=== PATIENT | male | born 1955 | race Caucasian/White ===

== ENCOUNTER → 2019-03-11 | Outpatient (CLI) | payer BC ==
--- NOTE | 2019-03-11 09:49 | US ---
EXAMINATION TYPE: US duplex aorta DATE OF EXAM: 03/11/2019 COMPARISON: NONE CLINICAL HISTORY: I10 HTN,Z82.49 FAM HX AAA. EXAM MEASUREMENTS: Abdominal Aorta: Proximal: 2.4cm Mid: 2.0cm Distal: 1.7cm Bifurcation: Rt:1.2cm Lt: 1.0 cm No evidence of AAA. IMPRESSION: No sonographic evidence of abdominal aortic aneurysm in the visualized portions of the ab dominal aorta.
== END | disposition home or self-care (01) ==
LOC: RADUSWWP 07:07
PROVIDERS: ATTEND Family Medicine
DX: I10 Essential (primary) hypertension (principal); Z82.49 Family history of ischemic heart disease and other diseases of the circulatory system
CPT/HCPCS: 93979

== ENCOUNTER 2021-03-02 12:58 | Emergency (ER) | payer MEDICARE, BC ==
[2021-03-02 13:43] VITALS: TEMP 98.7
[2021-03-02 13:56] LABS: Appearance,Urine Clear (Clear); Bilirubin,Urine Negative (Negative); Blood,Urine Negative (Negative); Color,Urine Yellow; Glucose,Urine (UA) Negative (Negative); Ketones,Urine Negative (Negative); Leukocyte Esterase,Urine Negative (Negative); Nitrite,Urine Negative (Negative); Protein,Urine Negative (Negative); Specific Gravity,Urine 1.011 (1.001-1.035); Urobilinogen,Urine <2.0 mg/dL (<2.0)
[2021-03-02 14:10] LABS: Basophils # (A) 0.1 k/uL (0-0.2); Basophils % (A) 1 %; Eosinophils # (A) 0.2 k/uL (0-0.7); Eosinophils % (A) 3 %; HCT 43.5 % (39.0-53.0); HGB 14.8 gm/dL (13.0-17.5); Lymphocytes # (A) 1.6 k/uL (1.0-4.8); Lymphocytes % (A) 24 %; MCH 32.5 pg (25.0-35.0); MCHC 33.9 g/dL (31.0-37.0); MCV 95.7 fL (80.0-100.0); Mean Platelet Volume 7.8; Monocytes # (A) 0.5 k/uL (0-1.0); Monocytes % (A) 7 %; Neutrophils # (A) 4.3 k/uL (1.3-7.7); Neutrophils % (A) 63 %; Platelet Count 276 k/uL (150-450); RBC 4.55 m/uL (4.30-5.90); RDW 13.7 % (11.5-15.5); WBC 6.9 k/uL (3.8-10.6)
[2021-03-02 14:36] LABS: Albumin 4.3 g/dL (3.5-5.0); Calcium 9.3 mg/dL (8.4-10.2); Potassium 4.3 mmol/L (3.5-5.1); Total Bilirubin 0.7 mg/dL (0.2-1.3); Total Protein 7.3 g/dL (6.3-8.2)
--- NOTE | 2021-03-02 17:07 | ED ---
General Adult HPI - General Chief complaint: Abdominal Pain Stated complaint: lt sided abd pain Time Seen by Provider: 03/02/21 16:57 Source: patient Mode of arrival: ambulatory Limitations: no limitations - History of Present Illness Initial comments: Dictation was produced using [employer] dictation software. please excuse any grammatical, word or spelling errors. Chief Complaint: Patient is a 65-year-old male past medical history of kidney stones hypertension and gout presents to the emergency department for left lower quadrant abdominal pain History of Present Illness: Patient is a 65-year-old male he has no significant comorbidities. This emergency department for 1-2 days of left groin pain, left flank pain and testicular pain. Patient states that he was out doing his usual activities of daily living. He denies any trauma to his testicle or abdominal area. Denies any nausea vomiting. Having normal bowel movements. No constitutional symptoms. He has history of kidney stones. He states this symptoms are similar though not as severe. He localizes the pain to his left lower quadrant. States that feels slightly improved with certain movements. Worse with palpation. Pain radiates to the left testicle The ROS documented in this emergency department record has been reviewed and confirmed by me. Those systems with pertinent positive or negative responses have been documented in the HPI. All other systems are other negative and/or noncontributory. PHYSICAL EXAM: General Impression: Alert and oriented x3, not in acute distress HEENT: Normocephalic atraumatic, extra-ocular movements intact, pupils equal and reactive to light bilaterally, mucous membranes moist. Cardiovascular: Heart regular rate and rhythm Chest: Able to complete full sentences, no retractions, no tachypnea Abdomen: abdomen soft, tenderness to palpation to the left lower quadrant non- distended, no organomegaly Musculoskeletal: Pulses present and equal in all extremities, no peripheral edema Motor: no focal deficits noted Neurological: CN II-XII grossly intact, no focal motor or sensory deficits noted Skin: Intact with no visualized rashes Psych: Normal affect and mood exam: Normal testicles, no palpable mass with Valsalva ED course: 65-year-old male presents to emergency Department with 2 days of radiating left groin pain. Vital signs upon arrival are within acceptable limits. Physical examination is benign. Patient underwent advanced triage protocol labs ordered by triage nurse. CBC is unremarkable. Metabolic panel is negative. No acute kidney injury. No leukocytosis. Urinalysis negative for blood or signs of infection. Computed tomography scan abdomen and pelvis shows minimal fat stranding around the proximal sigmoid colon. Clinical presentation concerning for diverticulitis. Provided [facility] prescription for oral antibiotics. Return precautions discussed. - Related Data Home Medications Medication Instructions Recorded Confirmed Allopurinol [Zyloprim] 300 mg PO DAILY 03/02/21 03/02/21 Lisinopril-Hctz 10-12.5 mg 1 tab PO DAILY 03/02/21 03/02/21 [Zestoretic 10-12.5] Psyllium Husk (with Sugar) 5 ml PO DAILY PRN 03/02/21 03/02/21 [Metamucil Powder] Previous Rx's Medication Instructions Recorded Amoxic-Pot Clav 875-125Mg 1 tab PO BID 10 Days #20 tab 03/02/21 [Augmentin 875-125] Allergies Allergy/AdvReac Type Severity Reaction Status Date / Time No Known Allergies Allergy Verified 03/02/21 17:23 Review of Systems ROS Statement: Those systems with pertinent positive or pertinent negative responses have been documented in the HPI. ROS Other: All systems not noted in ROS Statement are negative. Past Medical History Past Medical History: Hypertension Additional Past Medical History / Comment(s): gout History of Any Multi-Drug Resistant Organisms: None Reported Past Surgical History: Orthopedic Surgery Past Psychological History: No Psychological Hx Reported Smoking Status: Never smoker Past Alcohol Use History: Occasional Past Drug Use History: None Reported General Exam Limitations: no limitations Course Vital Signs 03/02/21 13:39 Temperature 98.7 F Pulse Rate 68 Respiratory 20 Rate Blood Pressure 122/53 O2 Sat by Pulse 96 Oximetry Medical Decision Making - Lab Data Result diagrams: 03/02/21 13:58 03/02/21 13:58 Lab Results 03/02/21 03/02/21 03/02/21 Range/Units 13:48 13:58 13:58 WBC 6.9 (3.8-10.6) k/uL RBC 4.55 (4.30-5.90) m/uL Hgb 14.8 (13.0-17.5) gm/dL Hct 43.5 (39.0-53.0) % MCV 95.7 (80.0-100.0) fL MCH 32.5 (25.0-35.0) pg MCHC 33.9 (31.0-37.0) g/dL RDW 13.7 (11.5-15.5) % Plt Count 276 (150-450) k/uL MPV 7.8 Neutrophils % 63 % Lymphocytes % 24 % Monocytes % 7 % Eosinophils % 3 % Basophils % 1 % Neutrophils # 4.3 (1.3-7.7) k/uL Lymphocytes # 1.6 (1.0-4.8) k/uL Monocytes # 0.5 (0-1.0) k/uL Eosinophils # 0.2 (0-0.7) k/uL Basophils # 0.1 (0-0.2) k/uL Sodium 137 (137-145) mmol/L Potassium 4.3 (3.5-5.1) mmol/L Chloride 99 (98-107) mmol/L Carbon Dioxide 29 (22-30) mmol/L Anion Gap 9 mmol/L BUN 18 (9-20) mg/dL Creatinine 1.03 (0.66-1.25) mg/dL Est GFR (CKD-EPI)AfAm 88 (>60 ml/min/1.73 sqM) Est GFR (CKD-EPI)NonAf 76 (>60 ml/min/1.73 sqM) Glucose 97 (74-99) mg/dL Calcium 9.3 (8.4-10.2) mg/dL Total Bilirubin 0.7 (0.2-1.3) mg/dL AST 24 (17-59) U/L ALT 24 (4-49) U/L Alkaline Phosphatase 105 (38-126) U/L Total Protein 7.3 (6.3-8.2) g/dL Albumin 4.3 (3.5-5.0) g/dL Amylase 50 (30-110) U/L Lipase 92 (23-300) U/L Urine Color Yellow Urine Appearance Clear (Clear) Urine pH 5.0 (5.0-8.0) Ur Specific [place] 1.011 (1.001-1.035) Urine Protein Negative (Negative) Urine Glucose (UA) Negative (Negative) Urine Ketones Negative (Negative) Urine Blood Negative (Negative) Urine Nitrite Negative (Negative) Urine Bilirubin Negative (Negative) Urine Urobilinogen <2.0 (<2.0) mg/dL Ur Leukocyte Esterase Negative (Negative) Disposition Clinical Impression: Diverticulitis Disposition: HOME SELF-CARE Condition: Fair Instructions (If sedation given, give patient instructions): Diverticulitis (ED) Prescriptions: Amoxic-Pot Clav 875-125Mg [Augmentin 875-125] 1 tab PO BID 10 Days #20 tab Is patient prescribed a controlled substance at d/c from ED?: No Referrals: Axel Gant MD [Primary Care Provider] - 1-2 days
--- NOTE | 2021-03-02 18:20 | CT ---
EXAMINATION TYPE: CT abdomen pelvis wo con DATE OF EXAM: 03/02/2021 COMPARISON: 09/02/2011 HISTORY: Left lower quadrant pain. CT DLP: 1074.4 mGycm Automated exposure control for dose reduction was used. Images obtained from the diaphragm to the floor the pelvis with no contrast. There is subsegmental atelectasis in the lingula left upper lobe. There is no pleural effusion. Heart size is normal. Liver and spleen are intact. Pancreas and gallbladder appear intact. The bile ducts are not dilated. Stomach appears normal. There is no adrenal mass. Kidneys have normal size and contour. There is no hydronephrosis. Ureters a re not dilated. There is no retroperitoneal adenopathy. Appendix is posterior and appears normal. There are numerous diverticula in the sigmoid colon. There is no diverticulitis. The bladder distends smoothly. There is left hip prosthesis. There is prostatic calcification. There is some minimal fat stranding anterior to the proximal sigmoid colon close to the abdominal wall. There is left hip prosthesis. The bony pelvis appears intact. The hip joints are intact. Lumbar verte bra have normal alignment. There is no compression fracture. IMPRESSION: There is sigmoid diverticulosis. There is evidence for minimal diverticulitis of the proximal sigmoid colon with minimal fat stranding. This appears new compared to old exam. Normal appendix. No renal stone or obstruction.
[2021-03-02] MEDS ORDERED: AMOXIC-POT CLAV 875-125MG 1 EACH TAB PO STA (18:26)
--- NOTE | 2021-03-02 18:28 | ED ---
Medical Decision Making - Lab Data Result diagrams: 03/02/21 13:58 03/02/21 13:58 Lab Results 03/02/21 03/02/21 03/02/21 Range/Units 13:48 13:58 13:58 WBC 6.9 (3.8-10.6) k/uL RBC 4.55 (4.30-5.90) m/uL Hgb 14.8 (13.0-17.5) gm/dL Hct 43.5 (39.0-53.0) % MCV 95.7 (80.0-100.0) fL MCH 32.5 (25.0-35.0) pg MCHC 33.9 (31.0-37.0) g/dL RDW 13.7 (11.5-15.5) % Plt Count 276 (150-450) k/uL MPV 7.8 Neutrophils % 63 % Lymphocytes % 24 % Monocytes % 7 % Eosinophils % 3 % Basophils % 1 % Neutrophils # 4.3 (1.3-7.7) k/uL Lymphocytes # 1.6 (1.0-4.8) k/uL Monocytes # 0.5 (0-1.0) k/uL Eosinophils # 0.2 (0-0.7) k/uL Basophils # 0.1 (0-0.2) k/uL Sodium 137 (137-145) mmol/L Potassium 4.3 (3.5-5.1) mmol/L Chloride 99 (98-107) mmol/L Carbon Dioxide 29 (22-30) mmol/L Anion Gap 9 mmol/L BUN 18 (9-20) mg/dL Creatinine 1.03 (0.66-1.25) mg/dL Est GFR (CKD-EPI)AfAm 88 (>60 ml/min/1.73 sqM) Est GFR (CKD-EPI)NonAf 76 (>60 ml/min/1.73 sqM) Glucose 97 (74-99) mg/dL Calcium 9.3 (8.4-10.2) mg/dL Total Bilirubin 0.7 (0.2-1.3) mg/dL AST 24 (17-59) U/L ALT 24 (4-49) U/L Alkaline Phosphatase 105 (38-126) U/L Total Protein 7.3 (6.3-8.2) g/dL Albumin 4.3 (3.5-5.0) g/dL Amylase 50 (30-110) U/L Lipase 92 (23-300) U/L Urine Color Yellow Urine Appearance Clear (Clear) Urine pH 5.0 (5.0-8.0) Ur Specific [place] 1.011 (1.001-1.035) Urine Protein Negative (Negative) Urine Glucose (UA) Negative (Negative) Urine Ketones Negative (Negative) Urine Blood Negative (Negative) Urine Nitrite Negative (Negative) Urine Bilirubin Negative (Negative) Urine Urobilinogen <2.0 (<2.0) mg/dL Ur Leukocyte Esterase Negative (Negative) Disposition Clinical Impression: Diverticulitis Disposition: HOME SELF-CARE Condition: Fair Instructions (If sedation given, give patient instructions): Diverticulitis (ED) Prescriptions: Amoxic-Pot Clav 875-125Mg [Augmentin 875-125] 1 tab PO Q8H 10 Days #30 tab Is patient prescribed a controlled substance at d/c from ED?: No Referrals: Axel Gant MD [Primary Care Provider] - 1-2 days
[2021-03-02 18:32] VITALS: BP 118/93; PULSE 64; RESP 18
== END 2021-03-02 18:37 | disposition home or self-care (01) ==
LOC: EC 12:58
DX: K57.32 Diverticulitis of large intestine without perforation or abscess without bleeding (principal); I10 Essential (primary) hypertension; M10.9 Gout, unspecified; Z79.899 Other long term (current) drug therapy; Z87.442 Personal history of urinary calculi
CPT/HCPCS: 36415; 74176; 80053; 81003; 82150; 83690; 85025; 99284

== ENCOUNTER → 2024-01-01 | Outpatient (CLI) | payer MEDICARE, BC ==
[2024-01-01 13:42] VITALS: BP 142/96; PULSE 68; RESP 18; TEMP 98.1
--- NOTE | 2024-01-01 14:49 | P.SLEEP ---
History of Present Illness DATE: 01/01/2024 CONSULTATION/NEW PATIENT EVALUATION HISTORY OF PRESENT ILLNESS/SLEEP-WAKE EVALUATION: 68-year-old gentleman had been evaluated in the sleep center for possible obstructive sleep apnea hypopnea syndrome. SLEEP SCHEDULE: Usually sleep schedule from 11 PM to 7 AM on weekdays and from 11 PM to 7308 AM on weekend. FALLING ASLEEP: Sometimes patient has difficulties to fall asleep, although no TV in bedroom. DURING SLEEP: Patient usually sleeps on the side position with snoring and witnessed episodes of stop breathing during the sleep by his . Patient wakes up from sleep up to 5 times with up to 4 episodes of nocturia., Dry mouth and heartburn. Positive history of restless leg symptoms. Positive history of out of dream movements usually on the second part on the night. No history of hypnogogical hallucinations, sleep paralysis, or cataplexy. DURING THE DAY/WAKE STATE: In the morning patient wake up tired, falling asleep during the day. [place] sleepiness scale is significantly increased to 15. Patient may take up to 2 naps during the day. No vivid dreams during naps. PAST MEDICAL HISTORY: Hypertension, gout arthritis. PAST SURGICAL HISTORY: Left hip replacement. MEDICATIONS: Please see below. SOCIAL HISTORY: Please see below. FAMILY HISTORY: Hypertension, arthritis, sleep apnea, diabetes. REVIEW OF SYSTEMS: Snoring, multiple awakenings from sleep, sleepiness during the day. No fevers. No double vision. No recent chest pain. No shortness of breath. No abdominal pain. No bleeding episodes. No blood in urine. No seizure episodes. PHYSICAL EXAMINATION: GENERAL: A pleasant patient without any distress. VITAL SIGNS: Please see below, weight 254.6 pounds, BMI 38.3. HEENT: PERRLA, EOMI. Evaluation of oropharynx showed tongue protrudes midline, low position of soft palate Mallampati 34, retrognathia 2 mm. NECK: Supple. No JVD. Thyroid is not palpable. 19 inches in circumference. LUNGS: Clear to percussion and to auscultation. Good air exchange. No wheezing or rhonchi. HEART: S1, S2 regular. No murmurs, gallops or rubs. ABDOMEN: Soft and nontender. Bowel sounds are present. No organomegaly appreciated. EXTREMITIES: No clubbing or cyanosis. UTILITY LOCATE TECHNICIAN: Awake, alert, and oriented x3. Cranial nerves 2 to 7 intact. There is no fasciculation or atrophy noted. No focal deficits observed. ASSESSMENT: 1. Snoring, witnessed episodes of stop breathing during the sleep, small oropharyngeal airspace, wide neck 19 inches in circumference, sleepiness with [place] Sleepiness Scale increased to 15. Obstructive sleep apnea hypopnea syndrome. 2. Restless leg symptoms. 3. Awakenings from sleep with out of during movements, possibly REM sleep behavioral disorder. 4. Hypertension. 5 Obesity, BMI 38.3. 6 . Gout. 7. Arthritis. 8. Status post left hip replacement. PLAN: 1. Polysomnography for evaluation of patient's breathing during sleep and to check for possible REM sleep behavioral disorder. 2. Following plan after reading sleep study. 3. Preferable position during sleep on the side. 4. No driving if patient feels any sleepiness. Patient is aware of civil and criminal liability for unsafe driving. 5. Sleep hygiene with regular sleep time for at least 7.5-8 hours. 6. Watching and losing weight. Thank you very much for referring this patient for consultation. Sincerely, Devon Barahona MD, PhD, FAASM. Diplomat of [place] [employer], Sleep Medicine Board by [place] [employer] [place] [employer] [facility] [place] cc: Jonelle Andrea, MSN, [facility] Past Medical History Past Medical History: GERD/Reflux, Hypertension Additional Past Medical History / Comment(s): gout, Diverticulitis, kidney stones, bronchitis, arthritis, sinus headaches, bronchitis, snorng, acid reflux History of Any Multi-Drug Resistant Organisms: None Reported Past Surgical History: Orthopedic Surgery Additional Past Surgical History / Comment(s): L hip fx/pinned, later replacement, then revision and replaced again. Past Psychological History: No Psychological Hx Reported Smoking Status: Never smoker Past Alcohol Use History: Occasional Additional Past Alcohol Use History / Comment(s): Chew tobacco, don't smoke Past Drug Use History: None Reported - Past Family History Mother Family Medical History: Hypertension, Pneumonia Additional Family Medical History / Comment(s): Sleep apnea, tracheostomy, lung problems (filled up with fluid), snoring Father Additional Family Medical History / Comment(s): Dad at age 62 - aortic aneurysm that burst (all his brothers had aortic aneurysm also.) Arthritis Medications and Allergies Home Medications Medication Instructions Recorded Confirmed Type Amoxic-Pot Clav 875-125Mg 1 tab PO Q8H 10 Days #30 tab 03/02/21 Rx [Augmentin 875-125] Lisinopril-Hctz 10-12.5 mg 1 tab PO DAILY 03/02/21 03/02/21 History [Zestoretic 10-12.5] Psyllium Husk (with Sugar) 5 ml PO DAILY PRN 03/02/21 03/02/21 History [Metamucil Powder] allopurinoL [Zyloprim] 300 mg PO DAILY 03/02/21 03/02/21 History Allergies Allergy/AdvReac Type Severity Reaction Status Date / Time No Known Allergies Allergy Verified 03/02/21 17:23 Physical Exam Vitals: Vital Signs Temp Pulse Resp BP Pulse Ox 01/01/24 13:38 98.1 F 68 18 142/96 96 Intake and Output 12/31/23 01/01/24 01/01/24 22:59 06:59 14:59 Other: Weight 115.383 kg Sleep Note - Sleep Data ESS Total: 15 - Sleep Note Sleep Note: Temperature: 98.1 F Pulse Rate: 68 Respiratory Rate: 18 Blood Pressure: 142/96 SpO2: 96 Height: 5 ft 8.2 in Weight: 115.383 kg BMI: Neck Circumference: 19
== END | disposition home or self-care (01) ==
LOC: 3 N SLEEP 13:09
PROVIDERS: ATTEND Internal Medicine
CPT/HCPCS: 99211

== ENCOUNTER 2024-01-05 19:34 | Outpatient (CLI) | payer MEDICARE, BC ==
--- NOTE | 2024-01-08 13:32 | P.PCN ---
Description of Procedure: POLYSOMNOGRAPHY REPORT PROCEDURE(S)/DATE(S): Polysomnography 01/05/2024 CLINICAL: Patient has been seen in the sleep center for evaluation of obstructive sleep apnea-hypopnea syndrome. Please see my consultation. Sleep study has been done for evaluation of patient breathing during the sleep. PROCEDURE: The standard montage for clinical polysomnography included the electroencephalogram, the electrooculogram, the mentalis surface electromyography and Lead II cardiography. The respiratory battery consisted of measurements of nasal/buccal air flow, pressure transducer measurements from nose, thoracic and/or abdominal effort and intercostal surface electromyography. Video monitoring has been done to check for any parasomnia events. Nocturnal oxyhemoglobin saturations were obtained by finger oximetry. Step-back titration with positive airway pressure was utilized to control the respiratory events, if necessary. RESULTS: During the diagnostic sleep study sleep efficiency was significantly decreased to 71.3%. Latency to sleep onset was significantly prolonged to 56.0 min. Sleep architecture showed stage NI significantly increased to 20.7%, Delta sleep was absent 0%, REM sleep was decreased to 16.8%. Respiratory channel showed 0 obstructive apneas, 3 mixed apneas, 0 central apneas, 409 hypopneas with lowest oxygen level 45%. Total apnea hypopnea index was 74.7. Heart rate was in the range between 57 and 72, average 64. EMG showed 0 periodic limb movements per hour with 0 micro-arousals per hour. IMPRESSIONS: 1. Severe obstructive sleep apnea hypopnea syndrome with severe oxygen desaturation. 2. No significant periodic limb movements have been documented. Please see other impressions from consultation PLAN: 1. The patient will have PAP titration for correction of respiratory abnormalities during the sleep. 2. Losing weight program. 3. Sleep hygiene with regular time in bed for at least 7-1/2 hours. 4. No driving if feeling sleepiness. Thank you very much for allowing me to participate in the management of your patient. Sincerely, Devon Barahona MD, PhD, FAASM. Diplomat of [place] [employer], Sleep Medicine Board by [place] [employer] Scientific Manager [facility] [place] cc: Axel Gant MD
== END 2024-01-06 05:45 | disposition home or self-care (01) ==
LOC: 3 N SLEEP 19:34
PROVIDERS: ATTEND Internal Medicine
DX: G47.33 Obstructive sleep apnea (adult) (pediatric) (principal); G47.36 Sleep related hypoventilation in conditions classified elsewhere
CPT/HCPCS: 95810

== ENCOUNTER 2024-01-14 19:36 | Outpatient (CLI) | payer MEDICARE, BC ==
--- NOTE | 2024-01-15 18:35 | P.PCN ---
Description of Procedure: CLINICAL: Titration with positive air pressure has been done for correction of respiratory abnormalities during sleep. DESCRIPTION OF PROCEDURE: The standard montage for clinical polysomnography included the electroencephalogram, the electrocardiogram, the mentalis surface electromyography and Lead II cardiography. The respiratory battery consisted of measurements of nasal /buccal air flow, pressure transducer measurements from the nose, thoracic and /or abdominal effort and intercostal surface electromyography. Video monitoring has been done to check for any parasomnia events. Nocturnal oxyhemoglobin saturations were obtained by finger oximetry. Step-back titration with positive airway pressure was utilized to control respiratory events. Raw data of sleep recording has been reviewed and is adequate. RESULTS: Sleep efficiency was slightly decreased to 82.3%. Latency to sleep onset was in normal range 17.0 minutes.]. Sleep architecture showed stage N1 was extremely short 0.3%, Delta sleep was normal at 15.0%, REM sleep in a very high range of 49.8%. Heart rate was minimum 59 BPM, maximum 78 BPM, average 68 BPM. EMG showed 0 periodic limb movements per hour. PAP titration have been done with CPAP up to the pressure 15 cm H2O. Patient had problems with CPAP, switched to BPAP. BPAP titrated up to 25/21 cm H2O. The best results were at the pressure 20/16 cm H2O with 3 L/min oxygen supplement. Apnea hypopnea index reduced to 0. During titration lowest desaturation was 51% with 2 hours and 2 minutes below 89%. IMPRESSION: 1. Obstructive sleep apnea hypopnea syndrome mostly on controle with BPAP treatment with oxygen supplement 3 L/min. 2. No significant periodic limb movements have been documented. Please see other impressions from consultation. PLAN: 1. The patient will have treatment with positive air pressure equipment with the level of pressure maximal inspiratory pressure 23, minimal expiratory pressure 8, pressure support 4 cm H2O with 3 L/min oxygen supplement and should use it every night for the whole night. 2. Watching and losing weight. 3. Sleep hygiene with regular time in bed for at least 8 hours. 4. No driving if feeling any sleepiness. 5. I will see the patient for follow up visit to explain the results of the test, recommendations, check compliance with treatment and make any necessary adjustment related to mask fitting, pressure and humidification. Thank you very much for allowing me to participate in the management of your patient. Sincerely, Devon Barahona MD, PhD, FAASM Diplomat of [place] [employer] Sleep Medicine Board of [place] [employer] [facility] [place] cc: Axel Gant MD
== END 2024-01-15 05:38 | disposition home or self-care (01) ==
LOC: 3 N SLEEP 19:36
PROVIDERS: ATTEND Internal Medicine
DX: G47.33 Obstructive sleep apnea (adult) (pediatric) (principal)
CPT/HCPCS: 95811

== ENCOUNTER → 2024-04-01 | Outpatient (CLI) | payer MEDICARE, BC ==
[2024-04-01 16:13] VITALS: BP 102/69; PULSE 97; RESP 20; TEMP 98.1
--- NOTE | 2024-04-01 17:50 | P.PROGSL ---
Subjective DATE: 04/01/2024 FOLLOW UP VISIT. Patient with obstructive sleep apnea hypopnea syndrome return to sleep center for follow-up visit. Recently patient had sleep study which documented obstructive sleep apnea hypopnea syndrome. Patient was initiated on PAP therapy and today is first visit after treatment was started. I explained results of sleep studies to the patient and family. Patient was able to use PAP equipment every night for the whole night. Patient does have problems related to the mask secondary to leak. Patient has stiles and mustache. [place] sleepiness scale is 7, which is normal. I checked information from PAP unit. BPAP unit pressure maximal inspiratory pressure 23, minimal expiratory pressure 8, average pressure 15/11 cm H2O. Usage is 100% for more then 4 hours, average 6.7 hours per night. Leak is very high 109 l/m, . Apnea Hypopnea Index is 6.9 for the last night and 11.6 average for the whole period of time after starting CPAP. Slight increasing of apnea-hypopnea index most probably related to significant leak. During physical exam: GENERAL: A pleasant patient without any distress. VITAL SIGNS: Please see below, weight 241.6 pounds. HEENT: PERRLA, EOMI.low position of soft palate, Mallapati 34. NECK: Supple. No JVD. LUNGS: Clear to percussion and to auscultation. Good air exchange. No wheezing o r rhonchi. HEART: S1, S2 regular. ABDOMEN: Soft and nontender.[] EXTREMITIES: No clubbing or cyanosis. 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 No focal deficit. Impressions: 1. Extremely severe obstructive sleep apnea-hypopnea syndrome, apnea hypopnea index 74.7. Patient demonstrated great compliance with treatment, benefiting from treatment. 2. Obesity, patient lost 13 pounds since previous visit. 3. Status post right hip replacement in February 2024 and previous left hip replacement. 4. Hypertension. 5. Gout. 6. Arthritis. Plan: 1. Continue using PAP equipment every night for the whole night. 2. To change air filter at least 1-2 times per month. 3. PAP unit should stay lower then position of the head. 4. Advised patient to remove all remaining water from humidifier canister daily and make it dry after each usage. Refill canister with fresh distilled water before each usage. 5. Sleep hygiene with regular time in bed for at least 8 hours. 6. Precautions related to driving. No driving if feel any sleepiness. 7. I will maintain prescription for PAP supplies including mask, tube, filters. 8. Patient may try nasal mask with nasal strips or fullface mask which goes under the nose. 9. Watching and losing weight. 10. Follow up visit in 8 months or earlier if patient has any problems. Thank you very much for allowing me to participate in the management of your patient. Devon Barahona MD, PhD, FAASM. Diplomat of [employer], Sleep Medicine Board by [employer] Systems Navigator of [facility] [place] Objective - Vital Signs Vital Signs: Vital Signs Temp 98.1 F 04/01/24 16:12 Pulse 97 04/01/24 16:12 Resp 20 04/01/24 16:12 BP 102/69 04/01/24 16:12 Pulse Ox 96 04/01/24 16:12 FiO2 Intake & Output 03/31/24 04/01/24 04/01/24 18:59 06:59 18:59 Weight 109.486 kg Home Medications: Home Medications Medication Instructions Recorded Confirmed Type Amoxic-Pot Clav 875-125Mg 1 tab PO Q8H 10 Days #30 tab 03/02/21 Rx [Augmentin 875-125] Lisinopril-Hctz 10-12.5 mg 1 tab PO DAILY 03/02/21 03/02/21 History [Zestoretic 10-12.5] Psyllium Husk (with Sugar) 5 ml PO DAILY PRN 03/02/21 03/02/21 History [Metamucil Powder] allopurinoL [Zyloprim] 300 mg PO DAILY 03/02/21 03/02/21 History
== END ==
LOC: 3 N SLEEP 15:25
PROVIDERS: ATTEND Internal Medicine
DX: G47.33 Obstructive sleep apnea (adult) (pediatric) (principal); I10 Essential (primary) hypertension; M10.9 Gout, unspecified; M19.90 Unspecified osteoarthritis, unspecified site; Z96.641 Presence of right artificial hip joint; E66.9 Obesity, unspecified; Z99.89 Dependence on other enabling machines and devices
CPT/HCPCS: 99212